=== PATIENT | female | born 2000 | race African-American/Black ===

== ENCOUNTER 2018-11-18 14:50 | Emergency (ER) | payer MEDICAID ==
[~2018-11-18] VITALS: Ht 167.6 cm; Wt 100.0 kg
[2018-11-18 15:01] VITALS: BP 130/74
[2018-11-18] MEDS ORDERED: SERT-112 PO (15:05)
[2018-11-18] MEDS ORDERED: FLUORESCEIN SODIUM 1MG/STRIP OP ONE (15:30)
[2018-11-18] MEDS ORDERED: TETRACAINE 0.5% OPHTH DROPS 4ML OP ONE (15:30)
== END 2018-11-18 16:43 | disposition home or self-care (01) ==
LOC: ER 16:27
DX: H10.9 Unspecified conjunctivitis (principal); Z90.89 Acquired absence of other organs; Z79.899 Other long term (current) drug therapy
CPT/HCPCS: 99283